=== PATIENT | male | born 1975 | race Caucasian/White ===

== ENCOUNTER 2020-01-12 16:39 | Inpatient (IN) | payer MEDICAID ==
[~2020-01-12] VITALS: Ht 157.5 cm; Wt 79.4 kg
[2020-01-12] MEDS ORDERED: SODIUM CHLORIDE 0.9% 1,000 ML IV ONE (18:11)
[2020-01-12] MEDS ORDERED: ACETAMINOPHEN 500MG TABLET PO ONE (18:15)
[2020-01-12] MEDS ORDERED: PIPERACILLIN/TAZOBACTAM 3.375GM/50ML PREMIX IV ONE (18:15)
[2020-01-12] MEDS ORDERED: PIPERACILLIN/TAZ 3.375G PREMIX 50 ML IV NR (18:30)
[2020-01-12] MEDS ORDERED: VANCOMYCIN 1500MG in DEXTROSE 5% WATER 250ML IV NR (18:30)
[2020-01-12 20:09] LABS: CHLORIDE 104 mEq/L (98-107)
[2020-01-12 20:13] LABS: BASOPHILS % 0.7 % (0.0-2.0); EOSINOPHILS % 0.4 % (0.0-5.0); ETHANOL BLOOD < 10 mg/dL; HEMATOCRIT. 45.4 % (42.0-52.0); HEMOGLOBIN. 15.2 g/dL (14.0-18.0); LYMPHOCYTES % 10.1 % (20.0-50.0); MEAN CORPUSCULAR HEMOGLOBIN 28.5 pg (28.0-32.0); MEAN CORPUSCULAR VOLUME 84.7 fL (80.0-94.0); MEAN PLATELET VOLUME 8.3 fl (7.4-10.4); NEUTROPHILS % 81.8 % (40.0-76.0); PLATELET 355 x1000/uL (130-400); RED BLOOD CELL COUNT 5.36 mill/uL (4.7-6.1); RED CELL DISTRIBUTION WIDTH 13.2 % (11.6-14.6)
[2020-01-12 20:24] LABS: PROTHROMBIN TIME 10.4 sec (9.6-11.0)
[2020-01-12 21:43] LABS: CLARITY URINE CLEAR (CLEAR); COLOR URINE YELLOW (YELLOW); KETONES URINE TRACE (NEGATIVE); LEUKOCYTE ESTERASE URINE NEGATIVE (NEGATIVE); NITRITE URINE NEGATIVE (NEGATIVE); OCCULT BLOOD URINE NEGATIVE (NEGATIVE); PH URINE 5.5 (4.5-8.0); PROTEIN URINE 1+ (NEGATIVE); SPECIFIC GRAVITY URINE 1.031 (1.005-1.030); UROBILINOGEN URINE 0.2 E.U./dL (0.2-1.0)
[2020-01-12 21:54] LABS: *AMPHETAMINES SCREEN URINE NEGATIVE (NEGATIVE); *BARBITURATES SCREEN URINE NEGATIVE (NEGATIVE); *BENZODIAZEPINES SCREEN URINE NEGATIVE (NEGATIVE)
[2020-01-12 21:55] LABS: *COCAINE SCREEN URINE NEGATIVE (NEGATIVE); CANNABINOID URINE SCREEN NEGATIVE (NEGATIVE); METHADONE URINE SCREEN NEGATIVE (NEGATIVE); OPIATES URINE SCREEN NEGATIVE (NEGATIVE); PHENCYCLIDINE URINE SCREEN NEGATIVE (NEGATIVE)
[2020-01-12] MEDS ORDERED: HYDROCODONE/ACETAMINOPHEN 5/325MG TABLET PO PRN (23:30)
[2020-01-12] MEDS ORDERED: ACETAMINOPHEN 325MG TABLET PO PRN (23:30)
[2020-01-12] MEDS ORDERED: MAGNESIUM/ALUMINUM HYDROXIDE/SIMETHICONE 30ML UDC PO PRN (23:30)
[2020-01-12] MEDS ORDERED: DOCUSATE SODIUM 100MG CAPSULE PO PRN (23:30)
[2020-01-12] MEDS ORDERED: GUAIFENESIN 200MG/10ML SUGAR FREE UDC PO PRN (23:30)
[2020-01-12] MEDS ORDERED: ONDANSETRON HCL 4MG/2ML INJ IV PRN (23:30)
[2020-01-12] MEDS ORDERED: CLONIDINE 0.1MG TABLET PO PRN (23:30)
[2020-01-12] MEDS: SODIUM CHLORIDE 0.45% 1,000 ML IV SCH (23:45)
[2020-01-12] MEDS: AMLODIPINE 10MG TABLET PO SCH (23:51)
[2020-01-12] MEDS: METOPROLOL TARTRATE 25MG TABLET PO SCH (23:51)
[2020-01-13] VITALS (7 sets, daily range): BP systolic 131–186; BP diastolic 89–109
[2020-01-13] MEDS ORDERED: PIPERACILLIN/TAZ 3.375G PREMIX 50 ML IV SCH (03:00)
[2020-01-13] MEDS: PIPERACILLIN/TAZOBACTAM 3.375 G in DEXT 5% WATER 100 ML IV SCH ×3 (04:08→16:53)
[2020-01-13 06:51] LABS: CHLORIDE 102 mEq/L (98-107)
[2020-01-13 07:07] LABS: LDL CHOLESTEROL 172 mg/dL (5-100)
[2020-01-13 07:10] LABS: HDL CHOLESTEROL 67 mg/dL (40-59)
[2020-01-13] MEDS ORDERED: VANCOMYCIN 1 G PREMIX 200 ML IV SCH (08:00)
[2020-01-13 08:10] LABS: BASOPHILS % 0.3 % (0.0-2.0); EOSINOPHILS % 1.5 % (0.0-5.0); HEMATOCRIT. 42.4 % (42.0-52.0); HEMOGLOBIN. 14.2 g/dL (14.0-18.0); LYMPHOCYTES % 19.1 % (20.0-50.0); MEAN CORPUSCULAR HEMOGLOBIN 28.9 pg (28.0-32.0); MEAN PLATELET VOLUME 9.3 fl (7.4-10.4); MONOCYTES % 7.9 % (2.0-8.0); NEUTROPHILS % 71.2 % (40.0-76.0); PLATELET 302 x1000/uL (130-400); RED BLOOD CELL COUNT 4.92 mill/uL (4.7-6.1); RED CELL DISTRIBUTION WIDTH 13.4 % (11.6-14.6)
[2020-01-13] MEDS: VANCOMYCIN 1 G PREMIX 200 ML IV SCH ×2 (08:10→20:51)
[2020-01-13] MEDS: METOPROLOL TARTRATE 25MG TABLET PO SCH ×2 (08:53→21:57)
[2020-01-13] MEDS: ENOXAPARIN 40MG/0.4ML SYR SUBCUT SCH (08:53)
[2020-01-13] MEDS: AMLODIPINE 10MG TABLET PO SCH (08:54)
[2020-01-13] MEDS: SODIUM CHLORIDE 0.45% 1,000 ML IV SCH (12:30)
[2020-01-13] MEDS: HYDRALAZINE HCL 50MG TABLET PO SCH ×2 (14:32→21:57)
[2020-01-14] MEDS: PIPERACILLIN/TAZOBACTAM 3.375 G in DEXT 5% WATER 100 ML IV SCH ×3 (00:26→11:19)
[2020-01-14] MEDS: CLOTRIMAZOLE/BETAMETHASONE 1/0.05% CREAM 15GM TOP SCH ×2 (00:27→08:49)
[2020-01-14 00:30] VITALS: BP 140/86
[2020-01-14 04:00] VITALS: BP 116/78
[2020-01-14] MEDS: SODIUM CHLORIDE 0.45% 1,000 ML IV SCH (06:16)
[2020-01-14] MEDS: HYDRALAZINE HCL 50MG TABLET PO SCH ×2 (06:17→13:21)
[2020-01-14 08:00] VITALS: BP 139/88
[2020-01-14] MEDS: VANCOMYCIN 1 G PREMIX 200 ML IV SCH (08:48)
[2020-01-14] MEDS: ENOXAPARIN 40MG/0.4ML SYR SUBCUT SCH (08:48)
[2020-01-14] MEDS: METOPROLOL TARTRATE 25MG TABLET PO SCH (08:49)
[2020-01-14] MEDS: AMLODIPINE 10MG TABLET PO SCH (08:49)
[2020-01-14 13:11] VITALS: BP 135/85
[2020-01-14] MEDS ORDERED: VANCOMYCIN 1 G PREMIX 200 ML IV SCH (14:00)
== END 2020-01-14 16:05 | disposition home or self-care (01) | DRG 720 ==
LOC: ER 16:39 → EDBEDREQ 22:45 → EDBEDREQTM 22:45 → ENRESERV 23:10 → 7WST 01-13 01:29 → 5WST 01-14 00:15
PROVIDERS: ADMIT Hospitalist; ATTEND Hospitalist
DX: A41.9 Sepsis, unspecified organism (principal); E87.2 Acidosis; T63.301A Toxic effect of unspecified spider venom, accidental (unintentional), initial encounter; R65.20 Severe sepsis without septic shock; E78.5 Hyperlipidemia, unspecified; I10 Essential (primary) hypertension; L03.114 Cellulitis of left upper limb; Z20.828 Contact with and (suspected) exposure to other viral communicable diseases; R74.0 Nonspecific elevation of levels of transaminase and lactic acid dehydrogenase [LDH]; E66.9 Obesity, unspecified; Z68.32 Body mass index [BMI] 32.0-32.9, adult; Y92.89 Other specified places as the place of occurrence of the external cause
CPT/HCPCS: 36415; 71045; 80053; 80061; 80202; 80305; 80320; 81003; 83605; 84145; 84484; 85025; 93005; 96365; 99291; J1650; J2543; J3370; J7030; J7060; G0480; U0003-CS